=== PATIENT | female | born 1970 | race Caucasian/White ===

== ENCOUNTER 2016-09-18 14:07 | Outpatient (CLI) ==
[2015-03-04 10:02] VITALS: BMI 22.6
[2016-09-18 14:32] LABS: BASOPHILS % (AUTO) 0.3 % (0.0-3.0); EOSINOPHILS # (AUTO) 0.1 K/ul (0.0-0.7); EOSINOPHILS % (AUTO) 0.8 % (0.0-7.0); HEMATOCRIT 39.4 % (37.0-47.0); HEMOGLOBIN 13.6 g/dl (12.0-16.0); IMMATURE GRANULOCYTE % (AUTO) 0.4 % (0.0-5.0); LYMPHOCYTES # (AUTO) 2.3 K/uL (0.60-3.4); LYMPHOCYTES % (AUTO) 25.1 (10.0-50.0); MEAN CORPUSCULAR HEMOGLOBIN 32.7 pg (27.0-31.0); MEAN CORPUSCULAR HGB CONC 34.5 (31.8-35.4); MEAN CORPUSCULAR VOLUME 94.7 fl (81.0-99.0); MONOCYTES # (AUTO) 0.6 K/uL (0.4-2.0); NEUTROPHILS # (AUTO) 6.2 K/ul (2.0-6.9); NEUTROPHILS % (AUTO) 67.4; PLATELET COUNT 225 10^3/uL (140-440); RED BLOOD COUNT 4.16 10^6/ul (4.20-5.40); WHITE BLOOD COUNT 9.17 K/ul (4.6-10.2)
[2016-09-18 15:58] LABS: ALANINE AMINOTRANSFERASE < 6 U/L (12-78); ALBUMIN 3.6 g/dL (3.4-5.0); ALBUMIN/GLOBULIN RATIO 1.13; ALKALINE PHOSPHATASE 47 U/L (42-98); ANION GAP 12.2; ASPARTATE AMINO TRANSFERASE 13 U/L (15-37); BILIRUBIN,TOTAL 0.35 mg/dL (0.00-1.20); BLOOD UREA NITROGEN 11 mg/dL (7-18); BUN/CREATININE RATIO 13.41; CALCIUM 8.8 mg/dL (8.2-10.2); CARBON DIOXIDE 25 mmol/L (21-32); CHLORIDE 104 mmol/L (98-107); CHOL/HDL RATIO 3.2 (4.5-5.5); CHOLESTEROL 163 mg/dL (0-200); CREATININE 0.82 mg/dL (0.60-1.30); GLUCOSE 94 mg/dL (70-110); HDL CHOLESTEROL 51 mg/dL (35-80); POTASSIUM 4.2 mmol/L (3.5-5.10); SODIUM 137 mmol/L (136-145); TOTAL PROTEIN 6.8 g/dL (6.4-8.2); TRIGLYCERIDES 102 mg/dL (30-150); VITAMIN D25 21 ng/mL (20-50); VLDL CHOLESTEROL 20 mg/dL (2-30)
== END 2016-09-18 14:08 | disposition home or self-care (01) ==
LOC: LAB 14:07
PROVIDERS: ATTEND Emergency Medicine
DX: E78.5 Hyperlipidemia, unspecified (principal); I10 Essential (primary) hypertension
CPT/HCPCS: 36415; 80053; 80061; 82306; 82607; 83036; 84443; 85025

== ENCOUNTER 2016-09-21 14:51 | Outpatient (CLI) ==
[2015-03-04 10:02] VITALS: BMI 22.6
--- NOTE | 2016-09-21 16:39 | CT ---
EXAM: CT chest without contrast. HISTORY: Pulmonary nodule follow-up. COMPARISON: None available. TECHNIQUE: Multiple axial images of the chest were obtained without intravenous contrast. Images w ere reformatted in the sagittal and coronal planes. FINDINGS: Evaluation for lymphadenopathy is limited due to lack of intravenous contrast. Calcified mediastinal and left hilar lymph nodes are present. Heart size is normal. There is no pericardial effusion. Calcified granuloma seen in the anterior left upper lobe on axial image 17. Linear subsegmental ate lectasis or scarring noted in the left lung base. There is a noncalcified 0.4 cm right lower lobe n odule on axial image 37. A 0.3 cm right lower lobe nodule noted on axial image 26. Possible subple ural right lower lobe nodule on axial image 35 versus small focus of atelectasis. No pleural effusi on or pneumothorax detected. Limited images of the upper abdomen demonstrate no significant finding. A 0.3 cm nonobstructing lef t renal calculus is present. The osseous structures are without acute abnormality. IMPRESSION: 1. Right lower lobe micronodules. Follow-up chest CT in 6-12 months recommended for reassessment u nless there are old studies documenting stability. 2. Evidence of prior granulomatous disease.
== END 2016-09-21 14:52 | disposition home or self-care (01) ==
LOC: RAD 14:51
PROVIDERS: ATTEND Emergency Medicine
DX: R91.1 Solitary pulmonary nodule (principal)

== ENCOUNTER 2017-06-11 08:54 | Outpatient (CLI) ==
[2015-03-04 10:02] VITALS: BMI 22.6
[2017-06-11 09:33] LABS: BASOPHILS % (AUTO) 0.5 % (0.0-3.0); EOSINOPHILS # (AUTO) 0.1 K/ul (0.0-0.7); EOSINOPHILS % (AUTO) 0.8 % (0.0-7.0); HEMATOCRIT 44.3 % (37.0-47.0); IMMATURE GRANULOCYTE % (AUTO) 0.4 % (0.0-5.0); LYMPHOCYTES # (AUTO) 1.2 K/uL (0.60-3.4); LYMPHOCYTES % (AUTO) 15.2 (10.0-50.0); MEAN CORPUSCULAR HEMOGLOBIN 31.7 pg (27.0-31.0); MEAN CORPUSCULAR HGB CONC 33.9 (31.8-35.4); MEAN CORPUSCULAR VOLUME 93.7 fl (81.0-99.0); MONOCYTES # (AUTO) 0.5 K/uL (0.4-2.0); MONOCYTES % (AUTO) 6.8 (0-10); NEUTROPHILS # (AUTO) 6.1 K/ul (2.0-6.9); NEUTROPHILS % (AUTO) 76.3; PLATELET COUNT 218 10^3/uL (140-440); RED BLOOD COUNT 4.73 10^6/ul (4.20-5.40); WHITE BLOOD COUNT 7.92 K/ul (4.6-10.2)
[2017-06-11 10:17] LABS: ALANINE AMINOTRANSFERASE < 6 U/L (12-78); ALBUMIN 3.6 g/dL (3.4-5.0); ALBUMIN/GLOBULIN RATIO 1.06; ALKALINE PHOSPHATASE 53 U/L (42-98); ANION GAP 11.9; ASPARTATE AMINO TRANSFERASE 13 U/L (15-37); BLOOD UREA NITROGEN 11 mg/dL (7-18); BUN/CREATININE RATIO 12.79; CALCIUM 9.1 mg/dL (8.2-10.2); CARBON DIOXIDE 26 mmol/L (21-32); CHLORIDE 105 mmol/L (98-107); CHOL/HDL RATIO 3.8 (4.5-5.5); CHOLESTEROL 173 mg/dL (0-200); CREATININE 0.86 mg/dL (0.60-1.30); GLUCOSE 92 mg/dL (70-110); HDL CHOLESTEROL 46 mg/dL (35-80); POTASSIUM 3.9 mmol/L (3.5-5.10); SODIUM 139 mmol/L (136-145); TRIGLYCERIDES 91 mg/dL (30-150); VITAMIN D25 30 ng/mL (20-50); VLDL CHOLESTEROL 18 mg/dL (2-30)
--- NOTE | 2017-06-12 09:13 | MAMMO ---
EXAM: Bilateral digital screening mammogram (2-D and 3-D) History: Screening Comparison: Bilateral mammogram 03/15/2016 Findings: MLO and CC views of bilateral breasts demonstrate heterogeneously dense breast parenchyma which can obscure small lesions. CAD was reviewed by the radiologist. Tomosynthesis was performed. Stable benign bilateral breast calcifications. There are no dominant masses, no suspicious microcal cifications and no architectural distortions Impression: Benign stable mammogram. Recommend followup routine screening mammography in 1 year. BIRADS 2
== END 2017-06-11 08:55 | disposition home or self-care (01) ==
LOC: RAD 08:54
PROVIDERS: ATTEND Emergency Medicine
DX: Z12.31 Encounter for screening mammogram for malignant neoplasm of breast (principal); F41.1 Generalized anxiety disorder; I10 Essential (primary) hypertension; M89.8X9 Other specified disorders of bone, unspecified site
CPT/HCPCS: 36415; 77067; 80053; 80061; 82306; 84443; 85025